=== PATIENT | female | born 1985 | race Caucasian/White ===

== ENCOUNTER 2019-11-24 12:30 | Emergency (ER) | payer OTHER ==
[~2019-11-24] VITALS: Ht 162.6 cm; Wt 81.6 kg
[2019-11-24 12:30] VITALS: BP 113/76
--- NOTE | 2019-11-24 12:52 | PHYS DOC ---
Adult General Chief Complaint Chief Complaint: FOOT INJURY PAIN [facility] HPI Patient is a 34-year-old female presents with complaint of pain in her right foot after stubbing her toe last night while coming up stairs. Patient states the pain is worst at the base of the first and second toes. She states that pain is similar to when she had broken bones in her other foot in the past. She denies any other injuries. She rates pain as moderate and states the pain is worsened with weightbearing.[] Review of Systems Review of Systems Constitutional: Denies fever or chills [] Respiratory: Denies cough or shortness of breath [] Cardiovascular: No additional information not addressed in HPI [] Musculoskeletal: Right foot/toe pain [] Integument: Denies rash or skin lesions [] Physical Exam Physical Exam Constitutional: Well developed, well nourished, no acute distress, non-toxic appearance. [] Skin: Warm, dry, no erythema, no rash. [] Extremities: Examination of right foot demonstrates small amount of soft tissue swelling around the base of the first and second toes with tenderness to pal pation in this region. [] Neurologic: Alert and oriented X 3. [] EKG EKG [] Radiology/Procedures Radiology/Procedures [] Impressions: PROCEDURE: FOOT RIGHT 3V EXAM: Right foot 3 views. HISTORY: First toe injury. COMPARISON: None. FINDINGS: Three views of the right foot are obtained. No fractures are identified. Alignment is normal. 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 There is a moderate plantar calcaneal spur. There may be a chronic healed fracture of the fifth metatarsal neck. IMPRESSION: 1. No fracture. 2. Mild first metatarsophalangeal osteoarthritis. Electronically signed by: Isabel Lopez MD (11/24/2019 1:20 PM) [facility] DICTATED AND SIGNED BY: REHAN LOPEZ MD DATE: 11/24/19 1320 CC: AGATHA LOZANO Jr. DO; PCP,NO ~ Course & Med Decision Making Course & Med Decision Making Pertinent Labs and Imaging studies reviewed. (See chart for details) [] Dragon Disclaimer Dragon Disclaimer This electronic medical record was generated, in whole or in part, using a voice recognition dictation system. Departure Departure: Impression: Primary Impression: Contusion of toe of right foot Disposition: HOME, SELF-CARE Condition: STABLE Referrals: PCP,NO (PCP) Patient Instructions: Contusion Scripts Diclofenac Sodium (DICLOFENAC SODIUM) 50 Mg Tablet. 1 TAB PO BID PRN for PAIN, #20 TAB Prov: AGATHA LOZANO Jr. DO 11/24/19 Problem Qualifiers Primary Impression: Contusion of toe of right foot Encounter type: initial encounter Toe: great toe Damage to nail status: without damage Qualified Codes: S90.111A - Contusion of right great toe without damage to nail, initial encounter AGATHA LOZANO Jr. DO Nov 24, 2019 12:52
--- NOTE | 2019-11-24 13:23 | RAD ---
EXAM: Right foot 3 views. HISTORY: First toe injury. COMPARISON: None. FINDINGS: Three views of the right foot are obtained. No fractures are identified. Alignment is normal. 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 There is a moderate plantar calcaneal spur. There may be a chronic healed fracture of the fifth metatarsal neck. IMPRESSION: 1. No fracture. 2. Mild first metatarsophalangeal osteoarthritis. Electronically signed by: Isabel Lopez MD (11/24/2019 1:20 PM) [facility]
[2019-11-24] MEDS ORDERED: DICL50TA4 PO (13:41)
== END 2019-11-24 13:45 | disposition home or self-care (01) ==
LOC: ER 12:30
DX: S90.111A Contusion of right great toe without damage to nail, initial encounter (principal); W22.8XXA Striking against or struck by other objects, initial encounter; Y93.89 Activity, other specified; Y92.89 Other specified places as the place of occurrence of the external cause; Y99.8 Other external cause status
CPT/HCPCS: 73630; 99284